=== PATIENT | female | born 1980 | race Caucasian/White ===

== ENCOUNTER 2021-01-20 12:38 | Emergency (ER) | payer OTHER ==
[~2021-01-20] VITALS: Ht 144.8 cm; Wt 54.4 kg
[2021-01-20] MEDS ORDERED: CELEBREX 200 M200 M1 PO (12:56)
--- NOTE | 2021-01-20 13:35 | EKG ---
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
[2021-01-20 13:45] LABS: ABSOLUTE NEUTROPHILS 5.3 thou/uL (1.4-8.2); BASOPHILS 0.5 % (0.0-2.0); EOSINOPHILS 0.1 % (0.0-3.0); HEMATOCRIT 41.1 % (37.0-47.0); HEMOGLOBIN 13.8 gm/dL (12.0-15.0); LYMPHOCYTES 23.1 % (24.0-44.0); MCH 29.5 pg (26.0-34.0); MCHC 33.5 g/dL (28.0-37.0); MONOCYTES 9.2 % (1.0-8.0); PLATELET COUNT 245 thou/uL (150-400); POLYS 67.1 % (36.0-66.0); RBC 4.67 mil/uL (4.20-5.00); WBC 7.8 thou/uL (4.0-11.0)
[2021-01-20 14:03] LABS: ANION GAP 10 mmol/L (7-16); BUN 13 mg/dL (7-18); CALCIUM 8.6 mg/dL (8.5-10.1); CHLORIDE 105 mmol/L (98-107); CO2 26 mmol/L (21-32); CREATININE 0.7 mg/dL (0.6-1.0); GLUCOSE 116 mg/dL (74-106); POTASSIUM 3.6 mmol/L (3.5-5.1); SODIUM 141 mmol/L (136-145)
[2021-01-20 14:13] LABS: TROPONIN-I <0.06 ng/mL (<0.06)
[2021-01-20] MEDS ORDERED: VISTARIL 25 MG25 M1 PO (14:58)
[2021-01-20 15:18] VITALS: BP 136/83
== END 2021-01-20 15:19 | disposition home or self-care (01) ==
LOC: ER 12:38
PROVIDERS: Nurse Practitioner
DX: R00.0 Tachycardia, unspecified (principal); F41.9 Anxiety disorder, unspecified; R11.2 Nausea with vomiting, unspecified; K30 Functional dyspepsia; Z79.899 Other long term (current) drug therapy; Z88.0 Allergy status to penicillin